=== PATIENT | female | born 1980 | race Caucasian/White ===

== ENCOUNTER 2020-07-18 07:04 | Outpatient (NON) | payer BC, SELFPAY ==
[2020-07-20 15:50] LABS: SARS-CoV-2 RNA PCR Negative
== END 2020-07-18 07:05 ==
PROVIDERS: PCP Internal Medicine; Visit Provider Internal Medicine
DX: Z20.828 Contact with and (suspected) exposure to other viral communicable diseases (principal); R68.89 Other general symptoms and signs
CPT/HCPCS: 87635; C9803; U0003

== ENCOUNTER 2020-09-27 09:07 | Outpatient (NON) | payer BC, SELFPAY ==
[2020-09-27 18:46] LABS: SARS-CoV-2 RNA PCR Positive
== END 2020-09-27 09:08 ==
PROVIDERS: PCP Internal Medicine; Visit Provider Nurse Practitioner
DX: U07.1 COVID-19 (principal)
CPT/HCPCS: C9803; U0003; U0005

== ENCOUNTER 2020-10-22 11:03 | Outpatient (CLI) | payer BC, SELFPAY ==
--- NOTE | ~2020-10-22 | XR_ITS ---
EXAMINATION: XR chest 2V DATE: 10/22/2020 11:20 INDICATION: Shortness of breath and cough, COVID 19 TECHNIQUE: Frontal and lateral views of the chest are obtained COMPARISON: None available FINDINGS: The lungs are free of acute opacities. There is no pleural effusion or pneumothorax. The ca rdiomediastinal silhouette is normal. There is mild thoracic spondylosis. IMPRESSION: 1. No acute cardiopulmonary abnormality. Reviewed, dictated and finalized at location A. 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
== END 2020-10-22 11:04 | disposition home or self-care (01) ==
PROVIDERS: PCP Internal Medicine; Visit Provider Internal Medicine
DX: U07.1 COVID-19 (principal)
CPT/HCPCS: 71046

== ENCOUNTER → 2021-05-21 16:03 | Outpatient (CLI) | payer BC, SELFPAY ==
--- NOTE | ~2021-05-21 | MM_ITS ---
EXAMINATION: MM screening [facility] BI w daily HISTORY: Screening mammogram TECHNIQUE: Craniocaudal and mediolateral oblique 3-D tomosynthesis images were obtained and synthetic 2-D images were generated. CAD analysis was submitted and interpreted. COMPARISON: 04/09/2019 bilateral digital screening mammogram BREAST PARENCHYMAL COMPOSITION: The breasts are almost entirely fatty. FINDINGS: There is no evidence of suspicious mass, calcification, or architectural distortion to sugg est malignancy in either breast. There has been no suspicious interval change. IMPRESSION: 1. No mammographic evidence of malignancy. 2. Recommend routine screening mammography in one year. BI-RADS Category 1: Negative Reviewed, dictated and finalized at location A.
== END ==
PROVIDERS: PCP Internal Medicine; Visit Provider Obstetrics & Gynecology
DX: Z12.31 Encounter for screening mammogram for malignant neoplasm of breast (principal)
CPT/HCPCS: 77063; 77067

== ENCOUNTER → 2022-06-01 11:16 | Outpatient (CLI) | payer BC, SELFPAY ==
--- NOTE | ~2022-06-01 | MM_ITS ---
EXAMINATION: MM screening [facility] BI w daily HISTORY: Screening mammogram TECHNIQUE: Craniocaudal and mediolateral oblique 3-D tomosynthesis images were obtained and synthetic 2-D images were generated. CAD analysis was submitted and interpreted. COMPARISON: 05/21/2021, 04/09/2019 BREAST PARENCHYMAL COMPOSITION: The breasts are almost entirely fatty. FINDINGS: There is no suspicious mass, calcification, or architectural distortion to suggest malignan cy in either breast. There has been no suspicious interval change. IMPRESSION: 1. No mammographic evidence of malignancy. 2. Recommend routine screening mammography in one year. BI-RADS Category 1: Negative Reviewed, dictated and finalized at location A.
== END ==
PROVIDERS: PCP Internal Medicine; Visit Provider Obstetrics & Gynecology
DX: Z12.31 Encounter for screening mammogram for malignant neoplasm of breast (principal)
CPT/HCPCS: 77063; 77067

== ENCOUNTER → 2023-06-18 07:54 | Outpatient (CLI) | payer BC, SELFPAY ==
--- NOTE | ~2023-06-18 | MM_ITS ---
EXAMINATION: MM screening [facility]oney BI w daily HISTORY: Screening mammogram TECHNIQUE: Craniocaudal and mediolateral oblique 3-D tomosynthesis images were obtained and synthetic 2-D images were generated. CAD analysis was submitted and interpreted. COMPARISON: 06/01/2022, 05/21/2021, 04/09/2019 bilateral screening mammogram examinations BREAST PARENCHYMAL COMPOSITION: The breasts are almost entirely fatty. FINDINGS: There is no evidence of suspicious mass, calcification, or architectural distortion to sugg est malignancy in either breast. There has been no suspicious interval change. IMPRESSION: 1. No mammographic evidence of malignancy. 2. Recommend routine screening mammography in one year. BI-RADS Category 1: Negative Reviewed, dictated and finalized at location A.
== END ==
PROVIDERS: PCP Family Medicine; Visit Provider Obstetrics & Gynecology
DX: Z12.31 Encounter for screening mammogram for malignant neoplasm of breast (principal)
CPT/HCPCS: 77063; 77067

== ENCOUNTER 2024-03-12 08:42 | Outpatient (CLI) | payer BC, SELFPAY ==
--- NOTE | ~2024-03-12 | US_ITS ---
EXAMINATION: US abdomen limited DATE: 03/12/2024 09:02 INDICATION: Other specified abnormal findings of blood chemistry. TECHNIQUE: Multiple grayscale and Doppler ultrasound images of the abdomen were obtained. COMPARISON: None FINDINGS: The visualized portions of the head, body, and tail of the pancreas are normal. There is di ffuse hepatic steatosis. There are gallstones in the gallbladder, which is normal in size. The gallbl adder wall thickening or sonographic Richards sign. The common duct is normal and measures 5 mm. IMPRESSION: 1. Cholelithiasis. No evidence of acute cholecystitis. 2. Diffuse hepatic steatosis. Reviewed, dictated and finalized at location A.
== END 2024-03-12 08:43 ==
LOC: GOSHIMG 08:43
PROVIDERS: PCP Internal Medicine; Visit Provider Internal Medicine
DX: K80.20 Calculus of gallbladder without cholecystitis without obstruction (principal); K76.0 Fatty (change of) liver, not elsewhere classified; R79.89 Other specified abnormal findings of blood chemistry
CPT/HCPCS: 76705

== ENCOUNTER 2024-09-19 11:33 | Outpatient (CLI) | payer BC, SELFPAY ==
--- NOTE | ~2024-09-19 | MM_ITS ---
EXAMINATION: MM screening stoney BI w daily HISTORY: Screening TECHNIQUE: Craniocaudal and mediolateral oblique 3-D tomosynthesis images were obtained and synthetic 2-D images were generated. CAD analysis was submitted and interpreted. COMPARISON: Comparison to multiple prior studies sequentially, with oldest reviewed study dated 04/09. BREAST PARENCHYMAL COMPOSITION: Not Dense: The breasts are almost entirely fatty. FINDINGS: There is no evidence of suspicious mass, calcification, or architectural distortion to sugg est malignancy in either breast. There has been no suspicious interval change. IMPRESSION: 1. No mammographic evidence of malignancy. 2. Recommend routine screening mammography in one year. BI-RADS Category 1: Negative Reviewed, dictated and finalized at location B. DUMPER
== END 2024-09-19 11:34 | disposition home or self-care (01) ==
LOC: MICIMG 11:34
PROVIDERS: PCP Internal Medicine; Visit Provider Obstetrics & Gynecology
DX: Z12.31 Encounter for screening mammogram for malignant neoplasm of breast (principal)
CPT/HCPCS: 77063; 77067

== ENCOUNTER 2025-01-03 01:15 | Day surgery (SDC) | payer BC, SELFPAY ==
[2024-12-21 13:55] VITALS: BMI 51.7
--- OUTSIDE RECORDS SUMMARY | 2025-01-03 01:17 | XMS_ITS ---
Author Organization [facility] Address [address] [facility]. [address] [place] [address] Care Team Providers Care Certified Medical Assistant Name Role Phone Holger Newberry DO Primary Care Provider Robson Peres Unavailable [phone] REASON FOR VISIT 1st screening, CPAP, 5ft4 306 Encounters Encounter Location Date Provider Diagnosis [address] [address] 11/06/2024 Robson Mcclellan Plan Of Treatment No Information Progress Notes * Ellen WARREN ADOB: [birth year] (44 yo F)Acc No.[id number]:11/06/2024 Patient: Ellen BERRY Provider: Pavan Mcclellan MD :1980 A ge:44 Y S ex:Female Date:11/06/2024 Address:[address] [facility] Pcp:Holger Newberry DO Subjective: * Chief Complaints: * 1 . 1st screening, CPAP, 5ft4 306. * Medical History: Objective: * Vitals: Assessment: Plan: * Treatment: * Images: * Electronic signature of Hugo Mcclellan MD on 01/03/2025 at 01:17 AM CDT Sign off status: Pending * Provider: Pavan Mcclellan MD Date: 0 11/06/2024 Generated for Grzegorzi milady/Zac/eTransmitting on: 0 01/03/2025 01:17 AM CDT
--- OUTSIDE RECORDS SUMMARY | 2025-01-03 01:17 | XMS_ITS | Clinical Summary ---
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 Gender Identity Not on file Sexual Orientation Not on file Plan of Treatment Health Maintenance Due Date Last Done Comments Hepatitis C Virus (HCV) Screening 1980 Hepatitis B Immunization (1 of 3 - 19+ 3-dose series) 1997 Colonoscopy 2023 Colorectal Cancer Screening 2023 Influenza Immunization (#1) 2024 SARS-COV-2 Immunization (2023- season) 2024 07/31/2021, 11/20/2020 Respiratory Syncytial Virus (RSV) Immunization (Adult) (1 - 1-dose 75+ series) 2053 DTaP/Tdap/Td Immunization Discontinued 10/31/2018 TdaP Immunization Completed 10/31/2018 Meningococcal Immunization (ACWY) Aged Out No longer eligible based on patient's age to complete this topic Pneumococcal Immunization Combined Aged Out No longer eligible based on patient's age to complete this topic Rotavirus Immunization Aged Out No lo nger eligible based on patient's age to complete this topic
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
--- OUTSIDE RECORDS SUMMARY | 2025-01-03 01:18 | XMS_ITS ---
Author Organization [facility], [facility] Address [address] [place] [address] [address] [place] [address] Care Team Providers Care Director Physical Name Role Phone Holger Newberry DO Primary Care Provider Robson Peres Unavailable [phone] REASON FOR VISIT 11/06 BCBS Colon auth Encounters Encounter Location Date Provider Diagnosis [facility], [address] [place] [address] 09/19/2024 Robson Mcclellan Plan Of Treatment No Information Progress Notes * Ellen WARREN ADOB: [birth year] (43 yo F)Acc No.[id number]:09/19/2024 Patient: Yu BERNADETTEBRANDON Ellen Beatty :1980 A ge:43 Y S ex:Female [facility] [facility] [address] * true * Date: Generated for Printi ng/Faxing/eTransmitting on: 0 01/03/2025 01:17 AM CDT
--- OUTSIDE RECORDS SUMMARY | 2025-01-03 01:18 | XMS_ITS | Patient Health Record ---
Author Organization [facility], [facility] Address [address] [place] [address] [place] Som[place] [address] Care Team Providers Care Workplace Relations Adviser Name Role Phone RohithHolger liu DO Primary Care Provider Robson Peres Unavailable [phone] Reason For Referral No Information Medications Medication SIG (Take, Route, Frequency, Duration) Notes Start Date End Date Status Suflave 178.7 GM ML Orally twice a da y, Follow Physician Instructions. for 1 days Date of colon - 11/06/2024 Cell number - [phone] Normal or 2 day colon prep - normal 09/19/2024 Active Encounters Encounter Location Date Provider Diagnosis [facility], [address] [place] [address] 09/19/2024 Robson Mcclellan [facility], [address] [place] [address] 09/19/2024 Robson Mcclellan Plan Of Treatment No Information Insurance Providers Payer Name Payer Address Payer Phone Subscriber Number Group Number Insured Name Patient Relationship to Insured Coverage Start Date Coverage End Date Blue Access Choice PPO E2 [address] [place] [address] [id number] Shailesh Potts Spouse - patient is the spouse of the insured
--- OUTSIDE RECORDS SUMMARY | 2025-01-03 01:18 | XMS_ITS ---
Author Organization [facility] [employer], [facility] Address [address] [place] [address] [address] [place] [address] Care Team Providers Care Lapping Machine Tender Name Role Phone Holger Newberry DO Primary Care Provider Robson Peres Unavailable [phone] REASON FOR VISIT 11/06 GH Suflave colon prep Medications Medication SIG (Take, Route, Frequency, Duration) Notes Start Date End Date Status Suflave 178.7 GM ML Orally twice a da y, Follow Physician Instructions. for 1 days Date of colon - 11/06/2024 Cell number - [phone] Normal or 2 day colon prep - normal 09/19/2024 Active Encounters Encounter Location Date Provider Diagnosis [facility], [address] Rodriguez [address] [place] [address] 09/19/2024 Rosbon Mcclellan Plan Of Treatment Medication Medication Name Sig Start Date Stop Date Notes Suflave 178.7 GM ML Orally twice a da y, Follow Physician Instructions. for 1 days 09/19/2024 Date of colon - 11/06/2024 Cell number - [phone] Normal or 2 day colon prep - normal Progress Notes * Ellen WARREN ADOB: [birth year] (43 yo F)Acc No.[id number]:09/19/2024 Patient: Ellen BERRY :1980 A ge:43 Y S ex:Female Address:[address], [place], [address] * Refills Start Suflave Solution Reconstituted, 178.7 GM, Orally, 1 Kit, ML, twice a day, Follow Physician Instructions., 1 days, Refills=0 * true * Date: Generated for [place]/Zac/Lionelitting on: 0 01/03/2025 01:17 AM CDT
[2025-01-03 10:12] VITALS: BP 139/77; PULSE 100; RESP 18; TEMP 36.1; O2SAT 95
[2025-01-03] MEDS: LACTATED RINGERS 1,000 ML 150 ML IV CONT (10:19)
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
[2025-01-03 11:43] LABS: BEDSIDEPREGUCG Negative (Negative)
[2025-01-03 11:44] VITALS: BP 138/78; PULSE 91; RESP 23; O2SAT 96
[2025-01-03 11:54] VITALS: BP 150/90; PULSE 95; RESP 25; O2SAT 96
[2025-01-03 12:04] VITALS: BP 160/86; PULSE 94; RESP 21; O2SAT 98
--- NOTE | 2025-01-03 12:06 | SUR.PHASEII ---
Patients blood pressure was 155/97. Patient stated I havent taken blood pressure medication today and thats my normal before taking my medication . Retook blood pressure which was 160/86. was notified of patients blood pressure and stated have them take medication when they get home. Patient was educated and given physcians number if they have any questions or concerns.
== END 2025-01-03 12:14 | disposition home or self-care (01) ==
PROVIDERS: PCP Internal Medicine; Referring Provider Internal Medicine; Visit Provider Internal Medicine Gastroenterology
PROC: 0DJD8ZZ Inspection of Lower Intestinal Tract, Via Natural or Artificial Opening Endoscopic (ICD-10-PCS; CPT 45378; principal; 2025-01-03 11:30)
DX: Z12.11 Encounter for screening for malignant neoplasm of colon (principal); D12.8 Benign neoplasm of rectum; I10 Essential (primary) hypertension; F41.8 Other specified anxiety disorders; E66.01 Morbid (severe) obesity due to excess calories; Z68.43 Body mass index [BMI] 50.0-59.9, adult; Z79.51 Long term (current) use of inhaled steroids; Z98.890 Other specified postprocedural states; Z80.49 Family history of malignant neoplasm of other genital organs; Z80.42 Family history of malignant neoplasm of prostate; Z80.7 Family history of other malignant neoplasms of lymphoid, hematopoietic and related tissues
CPT/HCPCS: 45385; 88305; J2003; J2704; J7120

== ENCOUNTER 2025-03-06 08:10 | Outpatient (CLI) | payer BC, SELFPAY ==
--- NOTE | ~2025-03-06 | US_ITS ---
US pelvic complete w TV Ordering provider: Latrell Donato MD History: . N93.9 - Abnormal uterine and vaginal bleeding, unspecified . Comparison: None. Technique: Transabdominal and endovaginal ultrasound of the pelvis (Doppler ultrasound interrogation techniques used as needed for this exam.) FINDINGS: CERVIX: Normal. UTERUS: Measures 8.6x 4.9x 6.3 cm in length which is within normal limits and is anteverted. No myom etrial masses. ENDOMETRIUM: Normal in thickness measuring 12 mm. No endometrial masses, cysts or fluid. CUL DE SAC: No free fluid. RIGHT OVARY: Normal in size measuring 14.8x 12.4x 17.1 cm. Normal echotexture. Doppler vascular flow present. Large cyst is seen measuring 13 x 12.8 x 12.1 cm and 4.2 x 3.8 x 4.2 cm LEFT OVARY: Not visualized. ADNEXA: Normal. No mass. IMPRESSION: Large cysts seen in the right ovary. Follow-up and further evaluation advised. Otherwise, normal pelv ic ultrasound. Reviewed, dictated and finalized at location A. IMPRESSION: Large cysts seen in the right ovary. Follow-up and further evaluation advised. Otherwise, normal pelvic ultrasound.
== END 2025-03-06 08:11 | disposition home or self-care (01) ==
LOC: MICIMG 08:10
PROVIDERS: PCP Obstetrics & Gynecology; Visit Provider Obstetrics & Gynecology
DX: N83.201 Unspecified ovarian cyst, right side (principal); N93.9 Abnormal uterine and vaginal bleeding, unspecified
CPT/HCPCS: 76830; 76856

== ENCOUNTER 2025-03-14 15:06 | Outpatient (CLI) | payer BC, SELFPAY ==
--- NOTE | ~2025-03-14 | CT_ITS ---
CT of the Abdomen and Pelvis: Indication: Ovarian cyst Technique: 2.5 mm axial scans were obtained through the abdomen and pelvis following intravenous adm inistration of 100 cc of Omnipaque 350. Dose reduction technique was used on this scan by utilizing a utomated exposure control and iterative reconstruction technique. The dose-length product (DLP) was 1 589.92 mGy-cm. Findings: Scans through the lung bases are unremarkable. There is diffuse hepatic steatosis. Large calcified gallstone measures 3.5 cm in diameter. The spleen , pancreas, adrenals and kidneys are within normal limits. No evidence of aortic aneurysm. No lymph adenopathy. No bowel obstruction or bowel wall thickening. There is no evidence to suggest acute appendicitis. Images through the pelvis were performed. Urinary bladder unremarkable. There is focal 12.0 x 12.2 x 13.4 cm cystic mass arising from the right ovary, with single thin septation versus adjacent cyst luis suring 4.6 cm in diameter (axial image 27). No significant left adnexal mass. No ascites. Impression: 12.0 x 12.2 x 13.4 cm cystic mass in the right ovary, with single thin septation versus adjacent 4.6 cm cyst. Consider follow-up pre and postcontrast MR to better assess for soft tissue component, as in dicated. Gynecologic surgical consultation recommended given size of the lesion. Diffuse hepatic steatosis. Cholelithiasis. Reviewed, dictated and finalized at [facility]. Impression: 12.0 x 12.2 x 13.4 cm cystic mass in the right ovary, with single thin septatio n versus adjacent 4.6 cm cyst. Consider follow-up pre and postcontrast MR to be tter assess for soft tissue component, as indicated. Gynecologic surgical consu ltation recommended given size of the lesion. Diffuse hepatic steatosis. Cholelithiasis.
--- OUTSIDE RECORDS SUMMARY | 2025-03-14 15:13 | XMS_ITS ---
Author Organization [facility] Address [address] [facility] [address] [place] [address] Care Team Providers Care Lodging Facilities Attendant Name Role Phone Holger Newberry DO Primary Care Provider Robson Peres Unavailable [phone] REASON FOR VISIT 1st screening, CPAP, 5ft4 306 Encounters Encounter Location Date Provider Diagnosis [address] [address] 11/06/2024 Robson Mcclellan Plan Of Treatment No Information Progress Notes * Ellen WARREN ADOB: [birth year] (44 yo F)Acc No.[id number]:11/06/2024 Patient: Ellen BERRY Provider: Pavan Mcclellan MD :1980 A ge:44 Y S ex:Female Date:11/06/2024 Address:[address] [facility] Pcp:Holger Newberry DO Subjective: * Chief Complaints: * 1 . 1st screening, CPAP, 5ft4 306. * Medical History: Objective: * Vitals: Assessment: Plan: * Treatment: * Images: * Electronic signature of Hugo Mcclellan MD on 03/14/2025 at 03:13 PM CDT Sign off status: Pending * Provider: Pavan Mcclellan MD Date: 0 11/06/2024 Generated for Grzegorzi milady/Zac/eTransmitting on: 0 03/14/2025 03:13 PM CDT
--- OUTSIDE RECORDS SUMMARY | 2025-03-14 15:13 | XMS_ITS | Clinical Summary ---
Author Organization 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 Gender Identity Not on file Sexual Orientation Not on file Plan of Treatment Health Maintenance Due Date Last Done Comments Hepatitis C Virus (HCV) Screening 1980 Hepatitis B Immunization (1 of 3 - 19+ 3-dose series) 1997 Colonoscopy 2023 Colorectal Cancer Screening 2023 SARS-COV-2 Immunization (2023- season) 2024 07/31/2021, 11/20/2020 Influenza Immunization (Seas on Ended) 2025 Respiratory Syncytial Virus (RSV) Immunization (Adult) (1 - 1-dose 75+ series) 2053 DTaP/Tdap/Td Immunization Discontinued 10/31/2018 TdaP Immunization Completed 10/31/2018 Human Papillomavirus (HPV) Immunization Aged Out No longer eligible based on patient's age to complete this topic Meningococcal Immunization (ACWY) Aged Out No longer eligible based on patient's age to complete this topic Pneumococcal Immunization Combined Aged Out No longer eligible based on patient's age to complete this topic Rotavirus Immunization Aged Out No lo nger eligible based on patient's age to complete this topic
--- OUTSIDE RECORDS SUMMARY | 2025-03-14 15:13 | XMS_ITS | Patient Health Record ---
[facility] Address [address] [place] [address] [place] [address] Care Team Providers Care Internal Security Manager Name Role Phone RohithHolger liu DO Primary Care Provider Robson Peres Unavailable [phone] Reason For Referral No Information Medications Medication SIG (Take, Route, Frequency, Duration) Notes Start Date End Date Status Suflave 178.7 GM ML Orally twice a da y, Follow Physician Instructions. for 1 days Date of colon - 11/06/2024 Cell number - [phone] Normal or 2 day colon prep - normal 09/19/2024 Active Encounters Encounter Location Date Provider Diagnosis [facility], [address] [place] [address] 09/19/2024 Robson Mcclellan [facility], [address] [place] [address] 09/19/2024 Robson Mcclellan Plan Of Treatment No Information Insurance Providers Payer Name Payer Address Payer Phone Subscriber Number Group Number Insured Name Patient Relationship to Insured Coverage Start Date Coverage End Date [employer] PPO E2 [address] [place] [address] [id number] Shailesh Potts Spouse - patient is the spouse of the insured
[2025-03-14 15:49] LABS: Estimated Glomerular Filt Rate > 60
== END 2025-03-14 15:07 | disposition home or self-care (01) ==
PROVIDERS: PCP Internal Medicine; Visit Provider Obstetrics & Gynecology
DX: N83.8 Other noninflammatory disorders of ovary, fallopian tube and broad ligament (principal); K80.20 Calculus of gallbladder without cholecystitis without obstruction; K76.0 Fatty (change of) liver, not elsewhere classified
CPT/HCPCS: 74177; Q9967

== ENCOUNTER 2025-08-20 15:51 | Outpatient (CLI) | payer BC, SELFPAY ==
--- NOTE | ~2025-08-20 | XR_ITS ---
EXAMINATION: XR knee RT 3V, 08/20/2025 15:56 [facility] [employer] HISTORY: M25.561 - Pain in right knee COMPARISON: No comparisons available. Findings: Postsurgical changes, no fracture identified. Minimal tricompartmental degenerative changes, small effusion Soft tissues unremarkable. Impression: No acute fracture or malalignment. Reviewed, dictated and finalized at location P. [facility] LECT[facility] Impression: No acute fracture or malalignment.
== END 2025-08-20 15:52 | disposition home or self-care (01) ==
LOC: MICIMG 15:52
PROVIDERS: PCP Internal Medicine; Visit Provider Nurse Practitioner
DX: M25.561 Pain in right knee (principal)
CPT/HCPCS: 73562